=== PATIENT | female | born 1965 | race Caucasian/White ===

== ENCOUNTER 2018-08-25 07:34 | Emergency (ER) | payer MEDICAID, OTHER ==
[2018-08-25 07:52] VITALS: TEMP 98.5
--- NOTE | 2018-08-25 08:02 | C.PDOC ---
History Of Present Illness 52 years old female with PMHx of HTN, A-Fib, and abdominal Hernia presents to ED for complaints of high blood pressure this morning on her home BP machine; also c/o subjective fever, and "eyes burning" that began this morning. Patient states she was diagnosed with new onset A-Fib and HTN and admitted to hospital from August 09-August 14, 2018. Patient reports "my blood pressure monitor at home woke me up which prompted the ED visit." She states blood pressure was 227/104. Patient currently denies headache, chest pain, blurry vision, Hx of smoking or drinking, or any other physical complaints. Patient states she has been compliant with medications but only took Aspirin and losartan at 6am this morning. Pt did not take her morning dose today of Diltiazem nor Hydralazine PMD: * Rodolfo Alfaro Current Medications: * Hydralazine 25mg (x4 a day) * Losartan 100mg (x1 a day) * Eliquis (x2 a day) * Diltiazem 60mg BID Time Seen by Provider: 08/25/18 07:51 Chief Complaint (Nursing): High Blood Pressure History Per: Patient History/Exam Limitations: no limitations Onset/Duration Of Symptoms: Hrs Current Symptoms Are (Timing): Still Present Associated Symptoms: denies: Chest Pain, Blurred Vision, Headache Quality Of Symptoms: Asymptomatic Exacerbating Factor(s): Pos: None Recent travel outside of the [place]: No Past Medical History Reviewed: Historical Data, Nursing Documentation, Vital Signs Vital Signs: Last Vital Signs Temp 98.5 F 08/25/18 07:46 Pulse 78 08/25/18 07:46 Resp 18 08/25/18 07:46 BP 220/100 H 08/25/18 07:46 Pulse Ox 99 08/25/18 07:46 - Medical History PMH: Anemia, Atrial Fibrillation, Bronchitis, HTN, Mitral Valve Prolapse, Sleep Apnea - [facility] Procedures OPEN ROBOTIC ASSISTED PROCEDURE (10/07/14) OTH REMOVE BOTH OVARIES/TUBES (10/07/14) OTHER AND UNSPECIFIED TOTAL ABDOMINAL HYSTERECTOMY (10/07/14) SUTURE VAGINA LACERATION (10/07/14) Family History: States: Hypertension (Mother), Other Other Family History: Father: Kidney problems - Social History Hx Alcohol Use: No Hx Substance Use: No Review Of Systems Constitutional: Positive for: Fever, Other (High blood pressure ). Negative for: Chills Eyes: Negative for: Vision Change Cardiovascular: Negative for: Chest Pain Respiratory: Negative for: Shortness of Breath Gastrointestinal: Negative for: Abdominal Pain Musculoskeletal: Positive for: Other (Right arm swelling ) Skin: Negative for: Rash Neurological: Negative for: Weakness, Numbness, Headache Physical Exam - Physical Exam Appears: Well, Non-toxic, No Acute Distress Skin: Normal Color, Warm, Dry Head: Atraumatic Eye(s): bilateral: Normal Inspection, EOMI Ear(s): Bilateral: Normal Nose: Normal Oral Mucosa: Moist Tongue: Normal Appearing Lips: Normal Appearing Teeth: Normal Dentition Throat: Normal Neck: Normal, Normal ROM Chest: Symmetrical, No Deformity Cardiovascular: Rhythm Regular, No Murmur, Other (not in a-fib) Respiratory: Normal Breath Sounds, No Rales, No Rhonchi, No Wheezing Gastrointestinal/Abdominal: Normal Exam, Bowel Sounds, Soft, Tenderness (mild, over site of chronic hernia) Back: Normal Inspection Extremity: Normal ROM Extremity: Bilateral: Atraumatic, Other (no pitting edema, no calf tenderness) Pulses: Left Radial: Normal, Right Radial: Normal Neurological/Psych: Oriented x3, Normal Motor, Normal Sensation ED Course And Treatment - Laboratory Results Result Diagrams: 08/25/18 08:18 08/25/18 08:18 O2 Sat by Pulse Oximetry: 99 (RA) Pulse Ox Interpretation: Normal Medical Decision Making Medical Decision Making: Initial Impression: Hypertension Initial Plan: Patient will take her own dose of diltiazem now, and I will give her the morning dose of hydralizine and see if BP then comes down. Ordered EKG, Urinalysis and blood work. / Disposition Counseled Patient/Family Regarding: Studies Performed, Diagnosis, Need For Followup - Disposition Referrals: Rodolfo Alfaro Jr., MD [Medical Doctor] - [facility] [Outside] Disposition: HOME/ ROUTINE Disposition Time: 10:13 Condition: IMPROVED Additional Instructions: Flash, thank you for letting us take care of you today. Continue taking your current blood pressure medications as prescribed, and follow up with Dr. Alfaro next week (as he may want to adjust your blood pressure medications). Your BUN and creatinine were normal. You did not have anemia today. Return to the ER if your symptoms worsen, or if any problems. Instructions: High Blood Pressure in Adults, Hypokalemia Forms: [facility] [employer] (Armenian) Print Language: ESTONIAN - Clinical Impression Clinical Impression: Hypertension, Hypokalemia - Scribe Statement The provider has reviewed the documentation as recorded by the Ritu De Paz All medical record entries made by the Bibianaibjames were at my direction and personally dictated by me. I have reviewed the chart and agree that the record accurately reflects my personal performance of the history, physical exam, medical decision making, and the department course for this patient. I have also personally directed, reviewed, and agree with the discharge instructions and disposition.
[2018-08-25 08:23] LABS: BASO # 0.1 K/uL (0.0-0.2); BASO % 1.3 % (0.0-2.0); EOS # 0.2 K/uL (0.0-0.7); EOS % 2.5 % (0.0-4.0); HEMOGLOBIN 11.4 g/dL (11.0-16.0); LYMPH # 1.8 K/uL (1.0-4.3); LYMPH % 27.8 % (20.0-40.0); MEAN CORPUSCULAR HGB CONC 32.9 g/dL (33.0-37.0); MEAN PLATELET VOLUME 8.6 fL (7.2-11.7); MONO # 0.4 K/uL (0.0-0.8); MONO % 6.2 % (0.0-10.0); NEUT # 4.1 K/uL (1.8-7.0); NEUT % 62.2 % (50.0-75.0); RBC 4.56 Mil/uL (3.80-5.20); RED CELL DISTRIBUTION WIDTH 16.2 % (11.5-14.5); WHITE BLOOD COUNT 6.6 K/uL (4.8-10.8)
[2018-08-25 08:34] LABS: ALB/GLOB RATIO 1.5 (1.0-2.1); ALBUMIN 4.2 g/dL (3.5-5.0); ALT/SGPT 42 U/L (9-52); AST/SGOT 32 U/L (14-36); BLOOD UREA NITROGEN 18 mg/dL (7-17); CALCIUM 9.5 mg/dl (8.6-10.4); GFR NON-AFRICAN AMERICAN > 60
[2018-08-25] MEDS ORDERED: Potassium Chloride 10 mEq ER Tab PO STA (08:40)
[2018-08-25 08:45] LABS: URINE BILIRUBIN NEGATIVE (NEGATIVE); URINE BLOOD 1+ (NEGATIVE); URINE CLARITY Clear (Clear); URINE COLOR Colorless (YELLOW); URINE GLUCOSE (UA) NORMAL (Normal); URINE LEUKOCYTE ESTERASE NEG Leu/uL (Negative); URINE PROTEIN NEGATIVE (NEGATIVE); URINE UROBILINOGEN NORMAL mg/dL (0.2-1.0)
[2018-08-25 10:26] VITALS: BP 164/85; PULSE 76; RESP 18; O2SAT 97
[2018-08-25] MEDS ORDERED: Potassium Chloride 10 mEq ER Tab PO ONE (10:47)
--- NOTE | 2018-08-27 21:06 | CARD ---
APPROVED REPORT Date of service: 08/25/2018 EKG Measurement Heart [id number] <Conclusion> Normal sinus rhythm Moderate voltage criteria for LVH, may be normal variant T wave abnormality, consider lateral ischemia Abnormal ECG
== END 2018-08-25 10:44 | disposition home or self-care (01) ==
LOC: C.ER 07:34
DX: I10 Essential (primary) hypertension (principal); E87.6 Hypokalemia

== ENCOUNTER 2018-08-31 09:48 | Emergency (ER) | payer OTHER ==
[2018-08-31 10:04] VITALS: RESP 16; O2SAT 99
[2018-08-31 11:10] LABS: BASO # 0.1 K/uL (0.0-0.2); BASO % 1.2 % (0.0-2.0); EOS # 0.1 K/uL (0.0-0.7); EOS % 1.9 % (0.0-4.0); HEMOGLOBIN 11.5 g/dL (11.0-16.0); LYMPH # 1.4 K/uL (1.0-4.3); LYMPH % 22.6 % (20.0-40.0); MEAN CORPUSCULAR HEMOGLOBIN 25.4 pg (27.0-31.0); MEAN CORPUSCULAR HGB CONC 32.9 g/dL (33.0-37.0); MEAN PLATELET VOLUME 9.1 fL (7.2-11.7); MONO # 0.3 K/uL (0.0-0.8); MONO % 4.9 % (0.0-10.0); NEUT # 4.4 K/uL (1.8-7.0); NEUT % 69.4 % (50.0-75.0); NRBC % 0.1 % (0.0-2.0); RBC 4.54 Mil/uL (3.80-5.20); RED CELL DISTRIBUTION WIDTH 16.9 % (11.5-14.5); WHITE BLOOD COUNT 6.3 K/uL (4.8-10.8)
--- NOTE | 2018-08-31 11:19 | C.PDOC ---
History Of Present Illness 52 year old female presents to ED for evaluation of episode of rapid heartbeat approximately an hour ago while getting ready. Pt states she had Afib in the past, which converted to sinus rhythm and has been taking medications since t . Pt states she was evaluated by electronics manufacturer 4 days ago. Otherwise denies chest pain, shortness of breath, leg swelling, fever, or any other associated symptoms at this time. Time Seen by Provider: 08/31/18 10:20 Chief Complaint (Nursing): Palpitations History Per: Patient History/Exam Limitations: no limitations Onset/Duration Of Symptoms: Days Current Symptoms Are (Timing): Still Present Recent travel outside of the [place]: No Additional History Per: Patient (Reports that currently has no symptoms. ) Past Medical History Reviewed: Historical Data, Nursing Documentation, Vital Signs Vital Signs: Last Vital Signs Temp 98.6 F 08/31/18 10:01 Pulse 86 08/31/18 10:01 Resp 16 08/31/18 10:01 BP 154/78 H 08/31/18 10:01 Pulse Ox 99 08/31/18 10:01 - Medical History PMH: Anemia, Atrial Fibrillation, Bronchitis, HTN, Mitral Valve Prolapse, Sleep Apnea Denies: Chronic Kidney Disease - [facility] Procedures OPEN ROBOTIC ASSISTED PROCEDURE (10/07/14) OTH REMOVE BOTH OVARIES/TUBES (10/07/14) OTHER AND UNSPECIFIED TOTAL ABDOMINAL HYSTERECTOMY (10/07/14) SUTURE VAGINA LACERATION (10/07/14) Family History: States: Hypertension (Mother) - Social History Hx Alcohol Use: No Hx Substance Use: No Review Of Systems Except As Marked, All Systems Reviewed And Found Negative. Constitutional: Negative for: Fever, Chills Eyes: Negative for: Pain ENT: Positive for: Other (No tinnitus). Negative for: Ear Pain, Ear Discharge Cardiovascular: Positive for: Palpitations. Negative for: Chest Pain, Edema, Light Headedness Respiratory: Negative for: Cough, Shortness of Breath Gastrointestinal: Negative for: Nausea, Vomiting, Abdominal Pain Genitourinary: Negative for: Dysuria, Frequency Musculoskeletal: Negative for: Neck Pain Skin: Negative for: Rash Neurological: Negative for: Weakness, Numbness Physical Exam - Physical Exam Appears: Non-toxic, No Acute Distress Skin: Normal Color, Warm, Dry, No Rash Head: Atraumatic, Normacephalic Eye(s): bilateral: Normal Inspection Ear(s): Bilateral: Normal Oral Mucosa: Moist Throat: No Erythema, No Exudate Neck: Normal ROM, No Midline Cervical Tenderness, No Paracervical Tenderness, Supple Chest: Symmetrical, No Tenderness Cardiovascular: Rhythm Regular, No Friction Rub, No Murmur Respiratory: Normal Breath Sounds, No Rales, No Rhonchi, No Stridor, No Wheezing Gastrointestinal/Abdominal: Bowel Sounds (active), Soft, No Tenderness Back: Normal Inspection, No CVA Tenderness Extremity: Normal ROM, No Pedal Edema Pulses: Left Radial: Normal, Right Radial: Normal, Left Dorsalis Pedis: Normal, Right Dorsalis Pedis: Normal Neurological/Psych: Oriented x3, Normal Speech ED Course And Treatment - Laboratory Results Result Diagrams: 08/31/18 11:06 08/31/18 11:06 ECG: Interpreted By Me ECG Rhythm: Sinus Rhythm ECG Interpretation: Normal O2 Sat by Pulse Oximetry: 99 (RA) Pulse Ox Interpretation: Normal Medical Decision Making Medical Decision Making: Plan: * CBC * CMP On re-exam, the patient reports improvement of symptoms. Lungs are CTA, heart is RRR, abdomen is soft, non-tender and tolerating PO well. Follow up with the medical doctor within 1-2 days. return if worsened. Disposition - Disposition Referrals: Rodolfo Alfaro Jr., MD [Medical Doctor] - Disposition: HOME/ ROUTINE Disposition Time: 11:34 Condition: STABLE Additional Instructions: Follow up with your electronics manufacturer within 1-2 days without fail. return if worsened. 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 - Scribe Statement The provider has reviewed the documentation as recorded by the Scribe KP All medical record entries made by the Scribe were at my direction and personally dictated by me. I have reviewed the chart and agree that the record accurately reflects my personal performance of the history, physical exam, medical decision making, and the department course for this patient. I have also personally directed, reviewed, and agree with the discharge instructions and disposition.
[2018-08-31 11:23] LABS: ALB/GLOB RATIO 1.4 (1.0-2.1); ALBUMIN 4.2 g/dL (3.5-5.0); ALT/SGPT 46 U/L (9-52); AST/SGOT 52 U/L (14-36); BLOOD UREA NITROGEN 13 mg/dL (7-17); CALCIUM 9.5 mg/dl (8.6-10.4); GFR NON-AFRICAN AMERICAN > 60
[2018-08-31 11:39] VITALS: BP 166/76; PULSE 72; TEMP 97.8
--- NOTE | 2018-09-03 20:49 | CARD ---
APPROVED REPORT Date of service: 08/31/2018 EKG Measurement Heart [id number] <Conclusion> Normal sinus rhythm Left ventricular hypertrophy with repolarization abnormality vs ischemia Abnormal ECG
== END 2018-08-31 11:37 | disposition home or self-care (01) ==
LOC: C.ER 09:48
DX: R00.2 Palpitations (principal); I10 Essential (primary) hypertension; I48.91 Unspecified atrial fibrillation

== ENCOUNTER 2018-11-16 22:44 | Emergency (ER) | payer OTHER ==
[2018-11-16 23:03] VITALS: RESP 18; TEMP 98.6; O2SAT 99
--- NOTE | 2018-11-16 23:32 | C.PDOC ---
History Of Present Illness 53 year old female with a PMHx of afib and HTN presents to the ER with HTN that began tonight. Patient took norvasc for the first time today, checked her BP as she usually does and noticed it was 230 systolic. Denies current headache, chest pain, SOB, or hematuria. Patient is already taking losartan, hydrochlorothiazide, labetalol, diltiazem, and eliquis. Time Seen by Provider: 11/16/18 22:47 Chief Complaint (Nursing): Medical Clearance History Per: Patient History/Exam Limitations: no limitations Onset/Duration Of Symptoms: Hrs Current Symptoms Are (Timing): Still Present Recent travel outside of the [place]: No Past Medical History Reviewed: Historical Data, Nursing Documentation, Vital Signs Vital Signs: Last Vital Signs Temp 98.6 F 11/16/18 22:55 Pulse 58 L 11/16/18 22:55 Resp 18 11/16/18 22:55 BP 188/82 H 11/16/18 22:55 Pulse Ox 99 11/16/18 22:55 - Medical History PMH: Anemia, Atrial Fibrillation, Bronchitis, HTN, Mitral Valve Prolapse, Sleep Apnea Denies: Chronic Kidney Disease - [facility] Procedures OPEN ROBOTIC ASSISTED PROCEDURE (10/07/14) OTH REMOVE BOTH OVARIES/TUBES (10/07/14) OTHER AND UNSPECIFIED TOTAL ABDOMINAL HYSTERECTOMY (10/07/14) SUTURE VAGINA LACERATION (10/07/14) Family History: States: Hypertension (Mother) - Social History Hx Alcohol Use: No Hx Substance Use: No Review Of Systems Except As Marked, All Systems Reviewed And Found Negative. Cardiovascular: Positive for: Other (HTN). Negative for: Chest Pain Respiratory: Negative for: Shortness of Breath Genitourinary: Negative for: Hematuria Neurological: Negative for: Headache Physical Exam - Physical Exam Additional Physical Exam Comments: Constitutional: No acute distress. Head: Normocephalic. Atraumatic. Eyes: PERRL. ENT: Moist mucous membranes. Neck: Supple. Cardiovascular: Regular rate. Radial pulse 2+ bilaterally. Chest: No tenderness. Respiratory: Clear to auscultation bilaterally. GI: Soft. Nontender. Nondistended. Back: No CVA tenderness. Musculoskeletal: No tenderness or swelling of extremities. Skin: No rash. Neurologic: Alert, no focal deficit. ED Course And Treatment - Laboratory Results Result Diagrams: 11/16/18 23:36 11/16/18 23:36 O2 Sat by Pulse Oximetry: 99 (Room air) Pulse Ox Interpretation: Normal Medical Decision Making Medical Decision Making: EKG, blood work, and CXR ordered. EKG: NSR 60bpm, T-wave inversions at v4-v6, no change from previous 08/2018. CXR no pleural effusion, pulmonary edema, or widened mediastinum. Discharged home, f/u PMD, return to ED for headache, vomiting, chest pain, dyspnea, urinary changes, or any other problem. Disposition - Disposition Disposition: HOME/ ROUTINE Disposition Time: 00:52 Condition: STABLE Instructions: High Blood Pressure Emergencies Forms: [employer] (Greenlandic) - Clinical Impression Clinical Impression: Hypertension - Scribe Statement The provider has reviewed the documentation as recorded by the Scribjames Ruzi All medical record entries made by the Scribe were at my direction and personally dictated by me. I have reviewed the chart and agree that the record accurately reflects my personal performance of the history, physical exam, medical decision making, and the department course for this patient. I have also personally directed, reviewed, and agree with the discharge instructions and disposition.
[2018-11-16 23:40] LABS: BASO # 0.2 K/uL (0.0-0.2); EOS # 0.2 K/uL (0.0-0.7); EOS % 2.7 % (0.0-4.0); HEMOGLOBIN 10.3 g/dL (11.0-16.0); LYMPH # 1.7 K/uL (1.0-4.3); LYMPH % 23.5 % (20.0-40.0); MEAN CELL VOLUME 76.3 fL (81.0-99.0); MEAN CORPUSCULAR HEMOGLOBIN 24.5 pg (27.0-31.0); MEAN CORPUSCULAR HGB CONC 32.1 g/dL (33.0-37.0); MEAN PLATELET VOLUME 7.7 fL (7.2-11.7); MONO # 0.3 K/uL (0.0-0.8); MONO % 4.4 % (0.0-10.0); NEUT # 4.8 K/uL (1.8-7.0); NEUT % 66.4 % (50.0-75.0); RBC 4.21 Mil/uL (3.80-5.20); RED CELL DISTRIBUTION WIDTH 15.9 % (11.5-14.5); WHITE BLOOD COUNT 7.2 K/uL (4.8-10.8)
[2018-11-16 23:52] LABS: ALB/GLOB RATIO 1.8 (1.0-2.1); ALBUMIN 4.4 g/dL (3.5-5.0); ALT/SGPT 33 U/L (9-52); AST/SGOT 36 U/L (14-36); BLOOD UREA NITROGEN 16 mg/dL (7-17); CALCIUM 9.2 mg/dl (8.6-10.4); GFR NON-AFRICAN AMERICAN > 60
[2018-11-17 00:09] VITALS: BP 184/84; PULSE 61
--- NOTE | 2018-11-17 10:02 | RAD ---
Date of service: 11/16/2018 HISTORY: Hypertension COMPARISON: 10/06/2014. TECHNIQUE: Chest PA and lateral FINDINGS: LINES AND TUBES: None. LUNG AND PLEURA: The lungs are well inflated and clear. No pleural effusion or pneumothorax. HEART AND MEDIASTINUM: The heart is not enlarged. No aortic atherosclerotic calcification present. The hilar and mediastinal contours are within normal limits. SKELETAL STRUCTURES: The bony structures are within normal limits for the patient's age. VISUALIZED UPPER ABDOMEN: Normal. OTHER FINDINGS: None. IMPRESSION: No active pulmonary disease.
--- NOTE | 2018-11-19 08:06 | CARD ---
APPROVED REPORT Date of service: 11/16/2018 EKG Measurement Heart [id number] [id number] <Conclusion> Sinus bradycardia ST & T wave abnormality, consider lateral ischemia Abnormal ECG
== END 2018-11-17 01:06 | disposition home or self-care (01) ==
LOC: C.ER 22:44
DX: I10 Essential (primary) hypertension (principal); I48.91 Unspecified atrial fibrillation; I34.1 Nonrheumatic mitral (valve) prolapse